=== PATIENT | female | born 1950 | race Caucasian/White ===

== ENCOUNTER 2017-12-24 12:18 | Emergency (ER) | payer OTHER ==
[~2017-12-24] VITALS: Ht 165.1 cm; Wt 132.9 kg
[2017-12-24 12:45] VITALS: BP 129/65
[2017-12-24] MEDS ORDERED: HYDROcodone/APAP 5/325MG 1 TAB TABLET PO ONE (13:00)
[2017-12-24] MEDS ORDERED: diazePAM 5 MG TABLET PO ONE (13:00)
[2017-12-24] MEDS ORDERED: CYCL10TA2 PO (13:10)
[2017-12-24] MEDS ORDERED: HYDR-971 PO (13:10)
--- NOTE | 2017-12-24 13:10 | PHYS DOC ---
Adult General Chief Complaint Chief Complaint: LOWER BACK PAIN OR INJURY HPI HPI Patient is a 67 year old female with history of chronic low back pain with sciatica who presents today with exacerbation of chronic low back pain. Patient rates her pain as 30 out of 10. Describes the pain as sharp and constant. States the pain got worse yesterday. States pain radiates to the left lower extremity. Patient denies any fall. Denies any loss of bowel bladder function. She states she has tried home remedies including ice and [id number] medications with no relief. Review of Systems Review of Systems Constitutional: Denies fever or chills [] GI: Denies abdominal pain, nausea, vomiting, bloody stools or diarrhea [] : Denies dysuria or hematuria [] Musculoskeletal: Reports left low back pain radiating to the left lower extremity Integument: Denies rash or skin lesions [] Neurologic: Denies headache, focal weakness or sensory changes [] All other systems were reviewed and found to be within normal limits, except as documented in this note. Current Medications Current Medications Current Medications Medications (Trade) Dose Ordered Sig/Dragan Start Time Stop Time Status Last Admin Dose Admin Acetaminophen/ Hydrocodone Bitart (Lortab 5/325) 2 tab 1X ONCE 12/24/17 13:00 12/24/17 13:01 UNV Diazepam (Valium) 5 mg 1X ONCE 12/24/17 13:00 12/24/17 13:01 UNV Naproxen (Naprosyn) 500 mg 1X STAT 12/24/17 12:52 12/24/17 12:53 UNV Physical Exam Physical Exam Constitutional: Well developed, well nourished, no acute distress, non-toxic appearance. [] Abdomen: Bowel sounds normal, soft, no tenderness, no masses, no pulsatile masses. [] Skin: Warm, dry, no erythema, no rash. [] Back: No tenderness, no CVA tenderness. [] Extremities: Mild tenderness on palpation of the left SI joint, no midline lumbar spine tenderness, no cyanosis, no clubbing, ROM intact, no edema. [] Neurologic: Alert and oriented X 3, normal motor function, normal sensory function, no focal deficits noted. [] Psychologic: Affect normal, judgement normal, mood normal. [] EKG EKG [] Radiology/Procedures Radiology/Procedures [] Course & Med Decision Making Course & Med Decision Making Pertinent Labs and Imaging studies reviewed. (See chart for details) This is a 67-year-old female patient presenting to the ED today with exacerbation of chronic low back pain with sciatica, no known injury. No cauda equina syndrome symptoms. Patient's pain will be managed in the ED. She is to follow-up with her own doctor starting tomorrow. She is provided return precautions and discharged in stable condition. Dragon Disclaimer Dragon Disclaimer This electronic medical record was generated, in whole or in part, using a voice recognition dictation system. Departure Departure Impression: Primary Impression: Low back pain Additional Impression: Sciatica of left side Disposition: HOME, SELF-CARE Condition: STABLE Referrals: UNKNOWN PCP NAME (PCP) Follow-up in 1-2 weeks Patient Instructions: Back Pain, Adult, [id number], Sciatica, [id number] Additional Instructions: You were evaluated in the emergency room for exacerbation of chronic low back pain. Take the prescribed medications as ordered. Follow-up with your own doctor as soon as you can. Scripts Cyclobenzaprine Hcl (CYCLOBENZAPRINE HCL) 10 Mg Tablet 1 TAB PO TID, #30 TAB Prov: PETER PRINGLE APRN 12/24/17 Hydrocodone/Apap 5-325 (NORCO 5-325 TABLET) 1 Each Tablet 1 TAB PO Q4-6HRS PRN for PAIN, #14 TAB Prov: PETER PRINGLE APRN 12/24/17 Problem Qualifiers Primary Impression: Low back pain Chronicity: chronic Back pain laterality: left Sciatica presence: with sciatica Sciatica laterality: sciatica of left side Qualified Codes: M54.42 - Lumbago with sciatica, left side; G89.29 - Other chronic pain PETER PRINGLE APRN Dec 24, 2017 13:10
[2017-12-24] MEDS ORDERED: NAPROXEN 500 MG TABLET PO STA (13:16)
== END 2017-12-24 13:52 | disposition home or self-care (01) ==
LOC: ER 12:18
DX: G89.29 Other chronic pain (principal); M54.42 Lumbago with sciatica, left side
CPT/HCPCS: 99284